=== PATIENT | male | born 1955 | race Caucasian/White ===

== ENCOUNTER → 2016-08-24 | Outpatient (CLI) | payer OTHER ==
--- NOTE | 2016-08-24 11:18 | CPEKG ---
Heart Rate: 89 RR Interval: 674 P-R Interval: 188 QRSD Interval: 94 QT Interval: 388 QTC Interval: 473 P Glover: 66 QRS Glover: -16 T Wave Glover: 68 EKG Severity - ABNORMAL ECG - EKG Impression: SINUS RHYTHM EKG Impression: MULTIPLE VENTRICULAR PREMATURE COMPLEXES EKG Impression: PVCS HAVE A VERTICAL AXIS AND RBBB MORPHOLOGY THAT MAY BE CONSISTENT WITH EKG Impression: OUTFLOW TRACT ORIGIN AND THEREFORE ABLE TO BE MAPPED AND ABLATED Electronically Signed By: Quinton Silverio 24-Aug-2016 19:51:07
== END ==
LOC: FCP 10:58
DX: Z13.6 Encounter for screening for cardiovascular disorders (principal)

== ENCOUNTER → 2017-06-07 | Outpatient (CLI) | payer OTHER | LOC: BMCIMAGING 08:59 | PROVIDERS: ATTEND Orthopaedic Surgery Hand Surgery | DX: M25.531 Pain in right wrist (principal) ==